=== PATIENT | female | born 1960 | race American Indian/Alaskan Native ===

== ENCOUNTER 2016-11-14 21:32 | Emergency (ER) | payer MEDICARE ==
[2016-11-15 00:05] LABS: Hematocrit 40.4 % (30.3-42.9); Hemoglobin 13.2 gm/dl (10.1-14.3); Mean Corpuscular HGB Conc 33 % (30-34); Mean Corpuscular Hemoglobin 28 pg (28-32); Mean Corpuscular Volume 84 fl (79-97); Platelet Count 224 K/mm3 (140-440); Red Blood Count 4.82 M/mm3 (3.65-5.03); Red Cell Distribution Width 13.7 % (13.2-15.2); White Blood Count 15.2 K/mm3 (4.5-11.0)
[2016-11-15 00:16] LABS: BUN/Creatinine Ratio 13.63; Blood Urea Nitrogen 15 mg/dL (7-17); Carbon Dioxide 24 mmol/L (22-30); Chloride 97.1 mmol/L (98-107); Glucose 118 mg/dL (65-100); Potassium 4.3 mmol/L (3.6-5.0); Sodium 140 mmol/L (137-145)
[2016-11-15 00:25] LABS: Bacteria,Urine 3+ /HPF (Negative); Bilirubin,Urine NEG (Negative); Blood,Urine NEG (Negative); Ketones,Urine NEG (Negative); Leukocyte Esterase,Urine NEG (Negative); Mucus,Urine FEW /HPF; Nitrite,Urine NEG (Negative); Protein,Urine <15 mg/dL mg/dL (Negative); Urobilinogen,Urine < 2.0 mg/dL (<2.0)
--- NOTE | 2016-11-15 02:56 | Emergency Department Report ---
- General Chief complaint: Animal Bite Stated complaint: ABSESS ON BOTTOM, FEVER, DIARRHEA, Time Seen by Provider: 11/15/16 02:47 Source: patient Mode of arrival: Ambulatory Limitations: No Limitations - History of Present Illness Initial comments: 56F PMH HTN, obesity p/w c/o abscess to left buttock x5 days. pt states she may have been bitten by insect [place]. Also incidentally states she has had some sinus congestion and briefly had an episode of isolated diarrhea earlier this week has been defecating and urinating normally. Denies any fever or chills. Patient showing me her buttocks and pointing out area that hurts. MD complaint: abscess/boil, discoloration Onset/Timin -: days(s) Tetanus Up to Date: yes Location: buttocks (left buttocks) Severity: moderate Severity scale (0 -10): 5 Quality: aching Consistency: intermittent Treatments Prior to Arrival: none - Related Data Previous Rx's Medication Instructions Recorded Last Taken Type Cephalexin [Keflex] 500 mg PO Q12HR #14 cap 11/15/16 Unknown Rx Fluconazole [Diflucan TAB] 150 mg PO ONCE #1 tablet 11/15/16 Unknown Rx Ibuprofen [Motrin] 600 mg PO Q8H PRN #25 tablet 11/15/16 Unknown Rx Sulfamethoxazole/Trimethoprim 1 each PO BID #14 tablet 11/15/16 Unknown Rx [Bactrim DS TAB] Allergies Allergy/AdvReac Type Severity Reaction Status Date / Time acetaminophen [From Vicodin] Allergy Dizziness Verified 11/14/16 23:08 aspirin Allergy Unknown Verified 11/14/16 23:08 hydrocodone bitartrate Allergy Dizziness Verified 11/14/16 23:08 [From Vicodin] tetracycline Allergy Nausea Verified 11/14/16 23:08 Abscess Boil HPI - HPI Chief Complaint: Animal Bite Stated Complaint: ABSESS ON BOTTOM, FEVER, DIARRHEA, Time Seen by Provider: 11/15/16 02:47 Home Medications: Previous Rx's Medication Instructions Recorded Last Taken Type Cephalexin [Keflex] 500 mg PO Q12HR #14 cap 11/15/16 Unknown Rx Fluconazole [Diflucan TAB] 150 mg PO ONCE #1 tablet 11/15/16 Unknown Rx Ibuprofen [Motrin] 600 mg PO Q8H PRN #25 tablet 11/15/16 Unknown Rx Sulfamethoxazole/Trimethoprim 1 each PO BID #14 tablet 11/15/16 Unknown Rx [Bactrim DS TAB] Allergies/Adverse Reactions: Allergies Allergy/AdvReac Type Severity Reaction Status Date / Time acetaminophen [From Vicodin] Allergy Dizziness Verified 11/14/16 23:08 aspirin Allergy Unknown Verified 11/14/16 23:08 hydrocodone bitartrate Allergy Dizziness Verified 11/14/16 23:08 [From Vicodin] tetracycline Allergy Nausea Verified 11/14/16 23:08 ED Review of Systems ROS: Stated complaint: ABSESS ON BOTTOM, FEVER, DIARRHEA, Other details as noted in HPI Constitutional: denies: chills, fever Eyes: denies: eye pain, eye discharge, vision change ENT: denies: ear pain, throat pain Respiratory: denies: cough, shortness of breath, wheezing Cardiovascular: denies: chest pain, palpitations Endocrine: no symptoms reported Gastrointestinal: denies: abdominal pain, nausea, diarrhea Genitourinary: denies: urgency, dysuria, discharge Musculoskeletal: denies: back pain, joint swelling, arthralgia Skin: as per HPI (visible cellulitis and abscess left buttock). denies: rash, lesions Neurological: denies: headache, weakness, paresthesias Psychiatric: denies: anxiety, depression Hematological/Lymphatic: denies: easy bleeding, easy bruising ED Past Medical Hx - Past Medical History Previous Medical History?: Yes Hx Hypertension: Yes Additional medical history: High cholesterol, Fibroids, endometriosis - Surgical History Past Surgical History?: Yes Additional Surgical History: 2002 left fallopian tube and ovary removed, right foot surgery with pins and plates - Social History Smoking Status: Never Smoker - Medications Home Medications: Home Medications Medication Instructions Recorded Confirmed Last Taken Type Cephalexin [Keflex] 500 mg PO Q12HR #14 cap 11/15/16 Unknown Rx Fluconazole [Diflucan TAB] 150 mg PO ONCE #1 tablet 11/15/16 Unknown Rx Ibuprofen [Motrin] 600 mg PO Q8H PRN #25 tablet 11/15/16 Unknown Rx Sulfamethoxazole/Trimethoprim 1 each PO BID #14 tablet 11/15/16 Unknown Rx [Bactrim DS TAB] ED Physical Exam - General Limitations: No Limitations General appearance: alert, in no apparent distress - Head Head exam: Present: atraumatic, normocephalic - Eye Eye exam: Present: normal appearance, PERRL, EOMI - ENT ENT exam: Present: mucous membranes moist - Neck Neck exam: Present: normal inspection - Respiratory Respiratory exam: Present: normal lung sounds bilaterally. Absent: respiratory distress - Cardiovascular Cardiovascular Exam: Present: regular rate, normal rhythm. Absent: systolic murmur, diastolic murmur, rubs, gallop - GI/Abdominal GI/Abdominal exam: Present: soft, normal bowel sounds - Extremities Exam Extremities exam: Present: normal inspection - Back Exam Back exam: Present: normal inspection - Neurological Exam Neurological exam: Present: alert, oriented X3, CN II-XII intact, normal gait - Psychiatric Psychiatric exam: Present: normal affect, normal mood - Skin Skin exam: Present: warm, dry, intact, normal color. Absent: rash - Expanded Skin Exam Expanded Type of lesion: Present: abscess (obascess w/ surronding cellultiis left buttock , diamter 12cm) ED Course Vital Signs 11/14/16 11/15/16 23:13 04:24 Temperature 98.2 F Pulse Rate 91 H 76 Respiratory 18 18 Rate Blood Pressure 137/70 Blood Pressure 107/63 [Left] O2 Sat by Pulse 98 100 Oximetry - I & D Left Buttocks Type of Procedure: Simple Site: left buttocks Blade Size: 11 I & D Procedure: betadine prep Progress: area infiltrated with 3 ccs lidocaine 1% w/ epi. stab incision made, horizontal 2 cm, 8-10 ccs of purulent drainage. iodoform gauze placed in wound ~ 6 inches. gauze placed on top ED Medical Decision Making - Lab Data Result diagrams: 11/14/16 23:39 11/14/16 23:39 - Medical Decision Making A/P: Left buttock abscess w/ mild surrounding cellulits 1- no involvement of anus, redness and swelling confined to left mid buttock. incised and drained, wound culture since. I advised patient to remove packing in 12 hours at home 2-Bactrim and Keflex twice a day, Motrin when necessary 3-I advised patient to return to ED if symptoms worsen she develops fevers chills any rectal pain Critical care attestation.: If time is entered above; I have spent that time in minutes in the direct care of this critically ill patient, excluding procedure time. ED Disposition Clinical Impression: Abscess of buttock, left Disposition: DC-01 TO HOME OR SELFCARE Is pt being admited?: No Does the pt Need Aspirin: No Condition: Stable Instructions: Cellulitis (ED), Abscess Incision and Drainage (ED), Abscess (ED) Prescriptions: Cephalexin [Keflex] 500 mg PO Q12HR #14 cap Fluconazole [Diflucan TAB] 150 mg PO ONCE #1 tablet Ibuprofen [Motrin] 600 mg PO Q8H PRN #25 tablet PRN Reason: Pain Sulfamethoxazole/Trimethoprim [Bactrim DS TAB] 1 each PO BID #14 tablet Referrals: [facility] [Provider Group] - 3-5 Days Forms: Accompanied Note, Work/School Release Form(ED) Time of Disposition: 04:12
[2016-11-15] MEDS ORDERED: MOTRIN PO ONE (02:57)
[2016-11-15 03:02] LABS: Anion Gap 23 mmol/L
[2016-11-15 04:25] VITALS: BP 107/63
== END 2016-11-15 04:43 | disposition home or self-care (01) ==
LOC: ED 21:32
DX: L02.31 Cutaneous abscess of buttock (principal); I10 Essential (primary) hypertension; E78.00 Pure hypercholesterolemia, unspecified
CPT/HCPCS: 36415; 80048; 81001; 85027; 87076; 87116; 87186; 99283